=== PATIENT | male | born 1995 | race African-American/Black ===

== ENCOUNTER 2018-03-29 21:09 | Inpatient (IN) | payer SELFPAY ==
[~2018-03-29] VITALS: Ht 170.2 cm; Wt 102.5 kg
[2018-03-29] MEDS ORDERED: SODIUM CHLORIDE 0.9% 1,000 ML IVB ONE ×2 (22:21→22:34)
[2018-03-29] MEDS ORDERED: MORPHINE SULFATE 4 MG/ML SYR/VIAL IV ONE (22:30)
[2018-03-29] MEDS ORDERED: ONDANSETRON HCL 4 MG/2 ML VIAL IV ONE (22:30)
[2018-03-29] MEDS ORDERED: IPRATROPIUM BROM 0.5 MG/2.5ML INH SOL NEB ONE (23:00)
[2018-03-29] MEDS ORDERED: ALBUTEROL SULF 2.5 MG/0.5ML(0.5%) NEB SOLN NEB ONE (23:00)
[2018-03-29 23:15] LABS: Basophils # (auto) 0.1 uL; Eosinophils # (auto) 0 uL; Monocytes # (auto) 0.9 uL
[2018-03-29 23:17] LABS: Basophils % (auto) 0.4 % (0.0-2.0); Hematocrit 50.7 % (41.0-53.0); Hemoglobin 15.9 g/dL (13.5-17.5); Lymphocytes % (auto) 15.6 % (10.0-50.0); Mean Corpuscular Hemoglobin 26.7 pg (28.0-32.0); Mean Corpuscular Hgb Conc. 31.4 g/dL (32.0-36.0); Mean Corpuscular Volume 84.9 fL (80.0-100.0); Monocytes % (auto) 7.1 % (0.0-12.0); Neutrophils # (auto) 9.6 uL; Neutrophils % (auto) 76.9 % (37.0-80.0); Platelet Count (auto) 244 10^3/uL (140-450); Red Blood Cells 5.97 10^6/uL (4.5-5.90); White Blood Cell 12.5 10^3/uL (4.4-10.8)
[2018-03-29 23:28] LABS: INR 1.35 (0.9-1.15); Partial Thromboplastin Time 28.6 sec (23.78-33.04); Prothrombin Time 14.2 sec (9.27-12.13)
[2018-03-30 00:21] LABS: Magnesium 2.5 mg/dL (1.6-2.6)
[2018-03-30 00:27] LABS: BUN/Creatinine Ratio 10.9
[2018-03-30 00:28] LABS: Albumin 2.6 g/dL (3.4-5.0); Bilirubin, Total 1.4 mg/dL (0.2-1.0); Calcium 8.3 mg/dL (8.5-10.1); Total Protein 7.1 g/dL (6.4-8.2)
[2018-03-30 00:31] LABS: Potassium 6.8 mmol/L (3.5-5.1)
[2018-03-30] MEDS ORDERED: DEXTROSE (50%) 50ML SYRG IV ONE ×2 (00:45→03:15)
[2018-03-30] MEDS ORDERED: CALCIUM GLUC 4.65meq/50ml D5AE 50 ML IV ONE ×2 (00:45→03:15)
[2018-03-30] MEDS ORDERED: InsuLIN REG 1unit/0.01ml Soln (100units/ml) IV ONE ×2 (00:45→03:15)
[2018-03-30] MEDS ORDERED: SODIUM POLYSTYRENE SULF 15 GM POWDER PO ONE ×2 (00:45→03:15)
[2018-03-30] MEDS ORDERED: NOREPINEPHRINE 8 MG/250ML KIT 250 ML IV SCH (01:10)
[2018-03-30] MEDS ORDERED: NOREPINEPHRINE 8 MG/250ML KIT 250 ML IV ONE (01:13)
[2018-03-30] MEDS ORDERED: SODIUM CHLORIDE 0.9% 1,000 ML IV ONE (04:00)
[2018-03-30 05:01] VITALS: BP 117/98
[2018-03-30 05:08] LABS: Urine Bacteria NONE SEEN /hpf (None Seen); Urine Blood Negative /uL (Negative); Urine Hyaline Cast MOD /lpf (0 - 2); Urine Mucus FEW (None Seen); Urine Specific Gravity 1.028 (1.001-1.035); Urine WBC 3 /hpf (0 - 3)
[2018-03-30 05:12] LABS: Amphetamine Screen, Urine NEGATIVE (NEGATIVE); Barbiturate Scree,Urine NEGATIVE (NEGATIVE); Benzodiazephine Screen, Urine NEGATIVE (NEGATIVE); Cannabinoid Screen, Urine POSITIVE (NEGATIVE); Cocaine Screen, Urine NEGATIVE (NEGATIVE); Opiate Scree,Urine NEGATIVE (NEGATIVE); Phencyclidine Screen, Urine NEGATIVE (NEGATIVE)
[2018-03-30] MEDS ORDERED: SODIUM BICARBONATE 8.4% INJ 50ML SYRINGE ONE ×3 (06:51→07:51)
[2018-03-30] MEDS ORDERED: LORazepam 2MG/ML-1ML VIAL ONE (06:56)
[2018-03-30] MEDS ORDERED: SODIUM BICARBONATE 8.4% INJ 50ML SYRINGE IV ONE (07:00)
[2018-03-30] MEDS ORDERED: MIDAZOLAM DRIP 50 mg/50mL 50 ML IV ONE (07:03)
[2018-03-30] MEDS ORDERED: EPINEPHrine HCL 250 ML IV SCH (07:25)
[2018-03-30] MEDS ORDERED: InsuLIN REG 1unit/0.01ml Soln (100units/ml) ONE (07:54)
[2018-03-30] MEDS ORDERED: EPINEPHrine HCL 1 MG/10 ML SYRG ONE (07:57)
[2018-03-30 08:31] LABS: Hematocrit 35.6 % (41.0-53.0); Hemoglobin 10.7 g/dL (13.5-17.5); Mean Corpuscular Hemoglobin 26.9 pg (28.0-32.0); Mean Corpuscular Volume 89.6 fL (80.0-100.0); Platelet Count (auto) 44 10^3/uL (140-450); Red Blood Cells 3.97 10^6/uL (4.5-5.90); Red Cell Distribution Width 15.9 % (11.8-14.3); White Blood Cell 13.1 10^3/uL (4.4-10.8)
[2018-03-30 08:38] LABS: Basophils % (manual) 0 (0.0-2.0); Blast Cells 0; Eosinophils % (manual) 0 (0-7); Myelocytes % 0; Promyelocytes % 0; Reactive Lymphocytes 0
[2018-03-30 08:40] LABS: Band Neutrophils % (manual) 1; Lymphocytes % (manual) 29 (10.0-50.0); Metamyelocytes % 2; Monocytes % (manual) 8 (0-12)
[2018-03-30 08:42] LABS: Albumin 1.5 g/dL (3.4-5.0); BUN/Creatinine Ratio 11.1; Calcium 10.2 mg/dL (8.5-10.1)
[2018-03-30 08:44] LABS: Potassium 7.3 mmol/L (3.5-5.1)
[2018-03-30 08:51] LABS: Bilirubin, Total 1.3 mg/dL (0.2-1.0); Total Protein 3.7 g/dL (6.4-8.2)
[2018-03-30 08:55] LABS: Lactic Acid w/Reflex 18.9 mmol/L (0.4-2.0)
== END 2018-03-30 08:23 | disposition expired ==
LOC: ER 21:09 → TELE 21:10
PROVIDERS: ADMIT Nurse Practitioner Family; ATTEND Nurse Practitioner Family
PROC: 02H633Z Insertion of Infusion Device into Right Atrium, Percutaneous Approach (ICD-10-PCS; principal; 2018-03-29)
DX: I21.4 Non-ST elevation (NSTEMI) myocardial infarction (principal); I42.9 Cardiomyopathy, unspecified; E87.5 Hyperkalemia; I50.9 Heart failure, unspecified; N25.89 Other disorders resulting from impaired renal tubular function; I95.9 Hypotension, unspecified
CPT/HCPCS: 36415; 36556; 36600; 51702; 71045; 71250; 80053; 80307; 81001; 82150; 82805; 82962; 83036; 83605; 83690; 83735; 83880; 84132; 84484; 85007; 85025; 85027; 85379; 85610; 85730; 93005; 94002; 94640; 96365; 96375; 99291; G0378; J0171; J0610; J1815; J2250; J2405